=== PATIENT | female | born 1965 | race Caucasian/White ===

== ENCOUNTER 2018-01-09 11:59 | Observation (INO) | payer OTHER ==
[2018-01-09] MEDS ORDERED: NITROGLYCERIN (SL) 0.4 MG TAB SL (13:00)
[2018-01-09 13:37] LABS: ADD MAN DIFF? NO
[2018-01-09 13:42] LABS: WHITE BLOOD COUNT 7.3 10^3/ul (4.8-10.8)
[2018-01-09 13:42] LABS: BASOPHILS % 0.3 % (0.0-2.0); EOSINOPHILS # 0.2 10^3/ul (0.0-0.5); EOSINOPHILS % 2.6 % (0.0-7.0); HEMATOCRIT 42.1 % (37.0-47.0); HEMOGLOBIN 13.8 g/dl (12.0-16.0); LYMPHOCYTES # 1.8 10^3/ul (0.8-2.9); LYMPHOCYTES % 24.8 % (15.0-51.0); MEAN CORPUSCULAR HEMOGLOBIN 28.9 pg (29.0-33.0); MEAN CORPUSCULAR HGB CONC 32.8 g/dl (32.0-37.0); MEAN CORPUSCULAR VOLUME 88.3 fl (82.0-101.0); MEAN PLATELET VOLUME 9.7 fl (7.4-10.4); MONOCYTE # 0.4 10^3/ul (0.3-0.9); MONOCYTES % 6.1 % (0.0-11.0); NEUTROPHIL # 4.8 10^3/ul (1.6-7.5); NEUTROPHILS % 65.9 % (39.0-77.0); PLATELET COUNT 255 10^3/UL (140-415); RED BLOOD COUNT 4.77 10^6/ul (4.20-5.40); RED CELL DISTRIBUTION WIDTH 12.6 % (11.5-14.5)
[2018-01-09] MEDS: ASPIRIN 81 MG TAB PO (13:50)
[2018-01-09] MEDS: NITROGLYCERIN 2% 1 GM OINT PKT TD (13:52)
[2018-01-09 13:59] LABS: ANION GAP 12 (8-16); BLOOD UREA NITROGEN 16 mg/dl (7-20); CALCIUM 9.4 mg/dl (8.4-10.2); CARBON DIOXIDE 25 mmol/L (21-31); CHLORIDE 109 mmol/L (97-110); CREATININE 0.67 mg/dl (0.44-1.00); GLUCOSE 101 mg/dl (70-220); POTASSIUM 4.1 mmol/L (3.5-5.1); SODIUM 142 mmol/L (135-144)
[2018-01-09 14:11] LABS: TROPONIN-I < 0.012 ng/ml (0.000-0.120)
[2018-01-09] MEDS ORDERED: ONDANSETRON 4 MG INJ IV ×2 (15:00→16:00)
[2018-01-09] MEDS ORDERED: NACL 0.9% 3 ML SYG IV (16:00)
[2018-01-09 16:55] LABS: HEMOGLOBIN A1C 5.6 % (0-5.9)
[2018-01-09 17:11] LABS: CREATINE KINASE 35 IU/L (23-200)
[2018-01-09 17:22] LABS: CK INDEX 0.6; CK-MB < 0.22 ng/ml (0.0-2.4); TROPONIN-I < 0.012 ng/ml (0.000-0.120)
[2018-01-09 17:30] LABS: D-DIMER < 220.00 ng/ml (<460)
[2018-01-09 17:46] LABS: FREE T4 (FREE THYROXINE) 1.58 ng/dl (0.64-1.79)
[2018-01-09] MEDS: IBUPROFEN 600 MG TAB PO (21:52)
[2018-01-10 01:19] LABS: CREATINE KINASE 39 IU/L (23-200)
[2018-01-10 01:31] LABS: CK INDEX 0.6; CK-MB < 0.22 ng/ml (0.0-2.4); TROPONIN-I < 0.012 ng/ml (0.000-0.120)
[2018-01-10 05:40] LABS: ADD MAN DIFF? NO
[2018-01-10 05:49] LABS: WHITE BLOOD COUNT 6.6 10^3/ul (4.8-10.8)
[2018-01-10 05:49] LABS: BASOPHILS % 0.3 % (0.0-2.0); EOSINOPHILS # 0.3 10^3/ul (0.0-0.5); HEMATOCRIT 41.3 % (37.0-47.0); HEMOGLOBIN 13.3 g/dl (12.0-16.0); LYMPHOCYTES # 1.8 10^3/ul (0.8-2.9); LYMPHOCYTES % 27.4 % (15.0-51.0); MEAN CORPUSCULAR HGB CONC 32.2 g/dl (32.0-37.0); MEAN PLATELET VOLUME 9.8 fl (7.4-10.4); MONOCYTE # 0.5 10^3/ul (0.3-0.9); MONOCYTES % 7.6 % (0.0-11.0); NEUTROPHIL # 3.9 10^3/ul (1.6-7.5); NEUTROPHILS % 59.2 % (39.0-77.0); PLATELET COUNT 232 10^3/UL (140-415); RED BLOOD COUNT 4.59 10^6/ul (4.20-5.40); RED CELL DISTRIBUTION WIDTH 13.1 % (11.5-14.5)
[2018-01-10 06:21] LABS: CHOL/HDL RATIO 2.6 RATIO; CHOLESTEROL 158 mg/dl (100-200); HDL CHOLESTEROL 59 mg/dl (37-92); LDL CHOLESTEROL,CALCULATED 78 mg/dl; MAGNESIUM 2.1 mg/dl (1.7-2.5); TRIGLYCERIDES 107 mg/dl (0-149)
[2018-01-10 06:23] LABS: TROPONIN-I < 0.012 ng/ml (0.000-0.120)
[2018-01-10 06:24] LABS: ALANINE AMINOTRANSFERASE 32 IU/L (13-69); ALBUMIN 3.7 g/dl (3.3-4.9); ALBUMIN/GLOBULIN RATIO 1.23; ALKALINE PHOSPHATASE 70 IU/L (42-121); ANION GAP 11 (8-16); ASPARTATE AMINO TRANSFERASE 26 IU/L (15-46); BILIRUBIN,INDIRECT 0.7 mg/dl (0-1.1); BILIRUBIN,TOTAL 0.7 mg/dl (0.2-1.3); BLOOD UREA NITROGEN 22 mg/dl (7-20); CARBON DIOXIDE 28 mmol/L (21-31); CHLORIDE 108 mmol/L (97-110); CREATININE 0.79 mg/dl (0.44-1.00); GLUCOSE 95 mg/dl (70-220); POTASSIUM 4.5 mmol/L (3.5-5.1); SODIUM 142 mmol/L (135-144); TOTAL PROTEIN 6.7 g/dl (6.1-8.1)
[2018-01-10] MEDS: HYDROXYCHLOROQUINE 200 MG TAB PO (08:14)
[2018-01-10] MEDS: LEVOTHYROXINE 150 MCG TAB PO (08:15)
[2018-01-10] MEDS: ASPIRIN 81 MG TAB PO (08:16)
[2018-01-10] MEDS: PATIENT'S OWN MEDICATION PO (11:41)
== END 2018-01-10 18:20 | disposition home or self-care (01) ==
LOC: E/R 11:59 → 6WM 14:59
DX: R07.89 Other chest pain (principal); R68.84 Jaw pain; E03.9 Hypothyroidism, unspecified; M32.9 Systemic lupus erythematosus, unspecified; M51.36 Other intervertebral disc degeneration, lumbar region; M50.30 Other cervical disc degeneration, unspecified cervical region; E66.9 Obesity, unspecified; Z68.32 Body mass index [BMI] 32.0-32.9, adult
CPT/HCPCS: 36415; 71045; 80048; 80053; 80061; 81025; 82550; 82553; 83036; 83735; 84100; 84439; 84443; 84484; 84703; 85025; 85378; 93005; 93306; 99285-25; G0378